=== PATIENT | female | born 1950 | race Caucasian/White ===

== ENCOUNTER 2018-06-13 07:58 | Outpatient (CLI) | payer MEDICARE, BC ==
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
== END 2018-06-13 07:59 | disposition home or self-care (01) ==
LOC: SCSMRI 07:58
PROVIDERS: ATTEND Neurological Surgery
DX: M47.26 Other spondylosis with radiculopathy, lumbar region (principal); M99.83 Other biomechanical lesions of lumbar region; M47.22 Other spondylosis with radiculopathy, cervical region
CPT/HCPCS: 72141; 72148

== ENCOUNTER 2018-07-31 10:06 | Outpatient (CLI) | payer MEDICARE, BC ==
[~2018-07-31 10:06] MED LIST: Gadobenate Dimeglumine 529 MG/1 ML (20ML VIAL) ONE
--- NOTE | 2018-07-31 12:34 | MRI ---
MRI OF THE LUMBAR SPINE WITH CONTRAST: Date: 07-31-18 Comparison: 06-13-18 History: Punctate focus of abnormal signal intensity seen on the prior examination in the region of t he cauda equina at L3-4. Post contrast imaging was performed to evaluate for enhancement in this dyllan on. Technique: Post contrast T1 weighted imaging is obtained of the lumbar spine with and without fat sat uration. In addition to the post contrast imaging, sagittal T2 weighted imaging is provided. FINDINGS: With respect to degenerative changes within the lumbar spine, please refer to the 06-13-18 noncontrast enhanced examination. There is no anterolisthesis or retrolisthesis noted within the lumbar spine. The post contrast imaging demonstrates no abnormal enhancement involving the imaged osseous structure s. There is mild enhancement seen centrally at the T10-11 intervertebral disc space suggesting degene rative change. There is no abnormal enhancement involving the contents of the thecal sac. Specifically, the area of signal abnormality noted on the prior examination does not demonstrate enhancement. This is located t o the right of midline posteriorly in the region of the nerve roots of the cauda equina at the L3-4 l evel. There is suggestion of decreased signal intensity within this region on all provided pulse sequ ences, which can be seen with calcification and/or blood products. This small area of signal abnormal ity measures in the 3-4 mm range, unchanged. It is hypointense on T1 and T2 weighted imaging. There is a benign hemangioma noted at the L5 level. There is disc space narrowing and bilateral facet hypertrophy at L5-S1 and there is bilateral facet h ypertrophy at L4-5. IMPRESSION: The 3-4 mm T1 and T2 hypointense nonspecific lesion associated with the nerve roots of the cauda equi na dorsally to the right of midline at the L3-4 level is unchanged and demonstrates no enhancement. T his could represent a hemorrhagic lesion or a small focus of blood products. Alternatively, this coul d represent calcification. Given its nonspecific nature, follow up MR imaging in approximately 6 grant hs is advised to document stability. Perhaps a CT examination may be beneficial to evaluate whether o r not this represents a benign focal calcification. POS: ERIS
== END 2018-07-31 10:07 | disposition home or self-care (01) ==
LOC: SCSMRI 10:06
PROVIDERS: ATTEND Neurological Surgery
DX: D42.1 Neoplasm of uncertain behavior of spinal meninges (principal); R93.7 Abnormal findings on diagnostic imaging of other parts of musculoskeletal system
CPT/HCPCS: 72149; 82565; A9579

== ENCOUNTER 2023-04-06 08:59 | Outpatient (CLI) | payer MEDICARE, BC | END 2023-04-06 09:00 | disposition home or self-care (01) | LOC: SCSRAD 08:59 | PROVIDERS: ATTEND Student in an Organized Health Care Education/Training Program | DX: M25.552 Pain in left hip (principal); M16.12 Unilateral primary osteoarthritis, left hip | CPT/HCPCS: 36415; 80053; 80061; 82607; 83540; 83550; 84443; 85025 ==

== ENCOUNTER 2024-08-14 07:18 | Outpatient (CLI) | payer MEDICARE, BC ==
[2024-08-14] MEDS ORDERED: E-Z-HD 98% W/W 340GM BOT (x-ray ONLY) ONE (07:26)
[2024-08-14] MEDS ORDERED: Barium Sulfate 96% 176 GM BOT (xray ONLY) ONE (07:26)
== END 2024-08-14 07:19 | disposition home or self-care (01) ==
LOC: RAD 07:18
PROVIDERS: ATTEND Surgery
DX: E66.01 Morbid (severe) obesity due to excess calories (principal)
CPT/HCPCS: 74220